=== PATIENT | male | born 1995 | race Caucasian/White ===

== ENCOUNTER → 2016-11-27 | Day surgery (SDC) | payer OTHER, MEDICAID ==
[~2016-11-27] VITALS: Ht 167.6 cm; Wt 63.2 kg
[~2016-11-27] MED LIST: CITRACAL+D(315M1 TAB PO; CLONAZEPAM0.5 MG PO; DEPAKOTE EXTEN250 MG PO; DEPAKOTE EXTEN500 MG PO; DIASTAT10 MG R; GROUND FLAX SEED PO; KEPPRA XR500 MG PO; LAMICTAL100 MG PO; LAMICTAL150 MG PO; LAMICTAL25 MG PO; MIRALAX17 GM PO; MULTI VITAMIN1 EACH PO
--- NOTE | ~2016-11-27 | OR ---
PATIENT'S NAME: ROB GIBSON [facility] AGE: 21 [address] ROOM: [place] [id number] LOCATION: [facility] [place] ADMIT DATE: 11/27/2016 OR/Procedure Report DISCHARGE DATE: FAMILY PHYSICIAN: Karen Martinez MD ATTENDING PHYSICIAN: Lisa Carmona SURGEON: Lisa Carmona DDS TIRE LAYER: I was assisted by Dorothy Arguello. DATE OF PROCEDURE: 11/27/2016 PREOPERATIVE DIAGNOSIS: Oral exam, radiographs, with or without prophy and scaling, and restorations of carious lesions. POSTOPERATIVE DIAGNOSIS: Oral exam, radiographs, with a prophy and scaling with no restorations. INDICATIONS: The patient arrived to the outpatient in good health and n.p.o. The patient is blind and mentally challenged and cannot cooperate for treatment in the office. There was a pre-surgical consult with his mom and all questions were answered. DESCRIPTION OF PROCEDURE: The patient was taken to the OR. In the supine position, the patient was prepped and draped in the usual manner. The patient was nasally intubated and administered general anesthesia and an IV was placed prior to intubation. A throat pack and Isodry were used to occlude the pharynx and as a mouth prop. An oral exam, prophy with full mouth debridement using the Cavitron, 2 occlusal and 4 bitewing radiographs were completed. The patient had no decay present. The mouth was then rinsed and the throat pack and the Isodry were removed. 3M VAISHALI Vanish 5% sodium fluoride varnish was placed on all dentition. Blood loss was minimal. The patient tolerated the procedure well and was transferred to recovery in good and stable condition. There was a postsurgical consult with his mom and all questions were answered. LISA CARMONA DDS TLP/modl /[id number] d: 11/27/16 1232 t: 11/30/16 0821, OPERATIVE SUMMARY
== END ==
LOC: GPOC 11-24 09:00 → GSDC 08:41
PROC: 0WC3XZZ Extirpation of Matter from Oral Cavity and Throat, External Approach (ICD-10-PCS; principal; 2016-11-27)
DX: K02.9 Dental caries, unspecified (principal); F84.0 Autistic disorder; G40.909 Epilepsy, unspecified, not intractable, without status epilepticus; Z88.8 Allergy status to other drugs, medicaments and biological substances; Z98.890 Other specified postprocedural states; Z79.899 Other long term (current) drug therapy; Z79.2 Long term (current) use of antibiotics
CPT/HCPCS: J2001; J2250; J7030